=== PATIENT | female | born 1930 | race Caucasian/White ===

== ENCOUNTER 2018-02-04 13:30 | Outpatient (RCR) | payer MEDICARE | END 2018-02-17 | disposition home or self-care (01) | LOC: PTY 13:30 | DX: M54.32 Sciatica, left side (principal); M25.562 Pain in left knee; G89.29 Other chronic pain; M54.5 Low back pain; M41.9 Scoliosis, unspecified; M51.16 Intervertebral disc disorders with radiculopathy, lumbar region | CPT/HCPCS: 97110; 97162; G8978; G8979 ==